=== PATIENT | male | born 1995 | race Caucasian/White ===

== ENCOUNTER 2023-09-02 08:25 | Day surgery (SDC) | payer BC ==
[2023-09-02] MEDS: Lactated Ringers 1,000 ML IV SCH (08:35)
--- NOTE | 2023-09-02 08:38 | HP ---
DATE OF SURGERY: 09/02/2023 HISTORY OF PRESENT ILLNESS: The patient is a 28-year-old had some chest pain. CT scan showed he had bronchitis then. CT scan also showed a small node question of some vague adenitis, had some epigastric aches and weight loss. He reported a bump lower chest area looked like his xiphoid process. No bloody stools. PAST MEDICAL HISTORY: Denies chronic illnesses. PAST SURGICAL HISTORY: Oral surgery. MEDICATIONS: Acetaminophen, Aleve. ALLERGIES: NKDA. FAMILY HISTORY: Negative for colon cancer. SOCIAL HISTORY: No smoking or alcohol abuse. REVIEW OF SYSTEMS: Twelve systems reviewed. No chest pain or palpitations. Other systems negative or noncontributory as above and per preadmission questionnaire. PHYSICAL EXAMINATION: Height 5 feet 3 inches. BMI 29.4. GENERAL: No acute distress. HEENT: Sclerae nonicteric. EOMI. Oral mucous membranes moist. NECK: No JVD. CHEST: Equal excursion, nonlabored breathing. CVS: Regular rate and rhythm. ABDOMEN: Soft. No peritoneal signs. EXTREMITIES: No cyanosis or edema. NEURO: Alert, oriented, moving extremities symmetrically. RECTAL: Deferred timed to endoscopy exam. PSYCH: Appropriate mood and affect. SKIN: Dry. IMPRESSION: Abdominal pain, weight loss, enlarged abdominal nodes. It could be anything from colitis, inflammatory bowel disease, viral syndrome, peptic ulcer disease versus other etiology. I recommend EGD and colonoscopy for evaluation. Risks explained in detail including but not limited to bleeding or infection, risk of bowel injury or perforation, risk of missed or nondiagnosis or incomplete exam possibly requiring barium enema, barium swallow, other studies or procedures. General risk of anesthesia or sedation, risk of bowel prep but not limited to, consent obtained. Will proceed with outpatient screening colonoscopy under MAC anesthesia.
[2023-09-02 08:47] VITALS: RESP 16
[2023-09-02] MEDS ORDERED: DIPRIVAN 200 MG/20 ML IV ONE ×2 (10:23→10:55)
[2023-09-02] MEDS ORDERED: Versed 2 MG/2 ML Injection ONE (10:23)
[2023-09-02] MEDS ORDERED: Xylocaine-Mpf 2% 5 Ml Vial ONE (10:23)
[2023-09-02 11:53] VITALS: BP 136/79; PULSE 93; TEMP 97.7; O2SAT 99
--- NOTE | 2023-09-03 09:41 | OP ---
SURGERY DATE/TIME: 09/02/2023 1053 PREOPERATIVE DIAGNOSIS: Epigastric pain, weight loss unclear etiology need for upper and lower endoscopy to rule out gastritis, peptic ulcer disease, celiac disease, colitis, inflammatory bowel disease or other etiology. POSTOPERATIVE DIAGNOSES: 1) Erosive gastritis. 2) Fairly normal appearing ileum and colon mucosa. 3) Fair bowel prep. 4) ASA Class II. 5) Withdrawal time of colonoscopy approximately nine minutes. PROCEDURES: 1) EGD with cold biopsy of small bowel to evaluate for celiac sprue. 2) Cold biopsy of antrum to evaluate for Helicobacter pylori. 3) Colonoscopy to terminal ileum. 4) Retrograde ileoscopy. 5) Random cold biopsy of ileum to evaluate for microscopic ileitis. 6) Random cold biopsy of the colon to evaluate for microscopic colitis. SURGEON: Dr. Job He. ANESTHESIA: MAC. ESTIMATED BLOOD LOSS: Minimal. INDICATIONS: As noted above. Risks and benefits explained in detail and not limited to and consent obtained. DESCRIPTION OF PROCEDURE AND FINDINGS: The patient is taken to the operating room. MAC anesthesia introduced. After official time out and no disagreement with planned procedure, bite block positioned. Video gastroscope passed down the esophagus to the patent pylorus to the junction of third and fourth portion of the duodenum. Duodenum was fairly unremarkable. No signs of any ulcers. Given his symptoms, cold biopsy taken to evaluate for celiac sprue. Good hemostasis noted. The scope is pulled back in the stomach. He had some mild gastric erythema, superficial erosions. Cold biopsy taken to evaluate for Helicobacter pylori and for path. On retroflex the gastroesophageal junction snug. No signs of any hiatal hernia. The scope was pulled back. The gastroesophageal junction about 39 cm. Z-line was fairly crisp. No signs of any Escobar's, no signs of any erosions or gross masses. Other mucosa fairly unremarkable. The scope is withdrawn. Attention is then turned to the colonoscopy. Digital rectal exam did not reveal any rectal masses. Video colonoscope inserted and passed up through the slightly tortuous sigmoid, descending, transverse, ascending colon around to the cecum up into the terminal ileum. Retrograde ileoscopy performed and this was grossly unremarkable. Random cold biopsies of the ileum to evaluate for microscopic ileitis. The scope is carefully withdrawn through the colon and had fair bowel prep with a little bit of liquidy semisolid stool limiting the exam for small lesions. There were no signs of any cody macroscopic inflammation. No signs of any large polyps, masses or obstructing lesions. Some random cold biopsies were taken of this fairly unremarkable mucosa to evaluate for microscopic colitis. Good hemostasis noted. Again, no signs of any large polyps, masses or obstructing lesions. The patient tolerated the procedure well. There were no immediate complications. It sounds like pain can be related to his erosive gastritis. I will check to see if he has had gallbladder work up or other work up to rule out other causes for nausea and vomiting. I went out to the waiting area to discuss findings with family or friend.
== END 2023-09-02 12:04 | disposition home or self-care (01) ==
LOC: SDC 08:25
PROVIDERS: ATTEND Surgery
DX: K29.70 Gastritis, unspecified, without bleeding (principal); R10.13 Epigastric pain; R63.4 Abnormal weight loss
CPT/HCPCS: J2250; J2704